=== PATIENT | male | born 1985 | race Caucasian/White ===

== ENCOUNTER 2016-11-24 22:35 | Emergency (ER) | payer SELFPAY ==
[~2016-11-24] VITALS: Ht 167.6 cm; Wt 104.0 kg
[~2016-11-24 22:35] MED LIST: CYCL5TAB PO; IBUP800T23 PO; PROZ20CA11 PO
[2016-11-24 22:38] VITALS: BP 141/93; PULSE 80; RESP 16; TEMP 98; O2SAT 98
[2016-11-24 22:55] VITALS: BP 141/93; PULSE 80; RESP 18; TEMP 98; O2SAT 98
[2016-11-24] MEDS ORDERED: AMOX500C PO (23:55)
[2016-11-24] MEDS ORDERED: IBUP800T23 PO (23:55)
--- NOTE | 2016-11-24 23:56 | PD ---
HPI Chief Complaint: Oral / Dental Pain or Problem Time Seen by Provider: 23:02 Travel History International Travel<30 days: No Contact w/Intl Traveler<30days: No Traveled to known affect area: No History of Present Illness HPI The patient is a 31-year-old male that has had dental pain in both posterior most mandibular molars for 2 years. These are teeth #32 and 17. He has had wisdom teeth removed. He states he has a dental appointment on Friday. He denies any fever, diabetes, heart murmur. He states the pain caused bilateral ear pain. The pain is worse in the last 3 days. [facility] Past Medical History Diminished Hearing: No GERD: Yes Immunizations Current: Yes Tetanus Vaccination: Unknown Influenza Vaccination: Yes Social History Alcohol Use: No Tobacco Use: No Substance Use: No Allergies-Medications (Allergen,Severity, Reaction): Coded Allergies: Azithromycin (Verified Allergy, Severe, swelling, 11/24/16) Tramadol (Verified Allergy, Severe, swelling, 11/24/16) Vicodin (Verified Allergy, Severe, swelling, 11/24/16) Reported Meds & Prescriptions Reported Meds & Active Scripts Active No Active Prescriptions or Reported Medications Review of Systems Except as stated in HPI: all other systems reviewed are Neg Physical Exam Narrative GENERAL: Well-nourished, well-developed patient in moderate apparent distress with his dental pain. His vital signs show blood pressure 141/93 but are otherwise normal. SKIN: Warm and dry. HEAD: Normocephalic. EYES: No scleral icterus. No injection or drainage. NECK: Supple, trachea midline. No JVD or lymphadenopathy. CARDIOVASCULAR: Regular rate and rhythm without murmurs, gallops, or rubs. RESPIRATORY: Breath sounds equal bilaterally. No accessory muscle use. GASTROINTESTINAL: Abdomen soft, non-tender, nondistended. MUSCULOSKELETAL: No cyanosis, or edema. BACK: Nontender without obvious deformity. No CVA tenderness. DENTAL: No loose or chipped teeth. No malocclusion. Tooth #32 is broken down and exquisitely tender. No drainable masses are seen in this area. Tooth #17 is exquisitely tender, no drainable abscesses are noted in the area. ENT: The tympanic membranes show some slight redness on the left tympanic membrane, the right tympanic membrane is normal. He has bilateral slight TMJ tenderness which is likely from the dental infection. Data Data Last Documented VS Vital Signs Date Time Temp Pulse Resp B/P Pulse Ox O2 Delivery O2 Flow Rate FiO2 11/24/16 22:57 80 18 11/24/16 22:55 98.0 141/93 98 MDM Medical Decision Making Medical Screen Exam Complete: Yes Emergency Medical Condition: Yes Medical Record Reviewed: Yes Differential Diagnosis Dental infection, otitis media, otitis externa, TMJ pain, drainable dental abscesses Narrative Course The patient has dental infections in teeth #32 and 17. There are no drainable abscess is noted. He does have a questionable otitis media on the left. Plan: The patient is given amoxicillin 500 mg 3 times a day with 2 refills. He is to follow-up with his dentist as scheduled. Diagnosis Primary Impression: Dental infection Additional Impression: Left otitis media Additional Instructions: Follow-up with your dentist as scheduled. Take the Motrin regularly, 1 tablet 3 times daily. There are 2 refills available to you with amoxicillin. Med/Other Pt SpecificInfo: Prescription(s) given Scripts Ibuprofen 800 Mg [id number] Mg PO TID #45 TAB Ref 0 Prov:Bruno Ackerman MD 11/24/16 Amoxicillin 500 Mg [id number] Mg PO TID 10 Days Ref 0 Prov:Bruno Ackerman MD 11/24/16 Disposition: 01 DISCHARGE HOME Condition: Stable Bruno Ackerman MD Nov 24, 2016 23:56
[2016-11-25] VITALS: BP 143/93; PULSE 69; RESP 18; O2SAT 99
[2016-11-25] MEDS ORDERED: AMOXICILLIN 875 MG TAB PO ONE
[2016-11-25] MEDS ORDERED: IBUPROFEN 800 MG TAB PO ONE ×2 (00:15)
== END 2016-11-25 00:33 | disposition home or self-care (01) ==
LOC: PHED 22:35
DX: K04.7 Periapical abscess without sinus (principal); H66.92 Otitis media, unspecified, left ear
CPT/HCPCS: 99282

== ENCOUNTER 2017-11-02 19:04 | Emergency (ER) | payer SELFPAY ==
[~2017-11-02] VITALS: Ht 167.6 cm; Wt 110.0 kg
[~2017-11-02 19:04] MED LIST changes: +AMOX500C PO; -CYCL5TAB PO; +IBUP1TAB7 PO; -IBUP800T23 PO; -PROZ20CA11 PO
[2017-11-02 19:05] VITALS: BP 165/108; PULSE 90; RESP 16; TEMP 98; O2SAT 98
[2017-11-02 20:16] VITALS: BP 158/97; PULSE 95; RESP 16; O2SAT 99
--- NOTE | 2017-11-02 20:32 | PD ---
HPI Chief Complaint: Hypertension Time Seen by Provider: 20:30 Travel History International Travel<30 days: No Contact w/Intl Traveler<30days: No Traveled to known affect area: No History of Present Illness HPI 32-year-old male patient presents to the ER today for anxiety, palpitations, sweatiness today. He states that he has been stressed out at work. He stopped by and noted that the blood pressure was fairly elevated. He has not had any significant hypertension in the past and is not any medications. He denies any chest pains, shortness of breath, or any other symptoms. Modifying Factors: None Associated Signs & Symptoms: Palpitations, anxiety, sweatiness, elevated blood pressure Risk Factors: Feeling stressed out at work PFSH Past Medical History Cardiovascular Problems: Yes (PRINZMETALS ANGINA) Diminished Hearing: No GERD: Yes Immunizations Current: Yes Past Surgical History Cholecystectomy: Yes Social History Alcohol Use: Yes (RARE) Tobacco Use: No Substance Use: No Allergies-Medications (Allergen,Severity, Reaction): Coded Allergies: acetaminophen (Unverified Allergy, Severe, swelling, 05/20/17) azithromycin (Unverified Allergy, Severe, swelling, 05/20/17) hydrocodone (Unverified Allergy, Severe, swelling, 05/20/17) tramadol (Unverified Allergy, Severe, swelling, 11/02/17) Reported Meds & Prescriptions Reported Meds & Active Scripts Active No Active Prescriptions or Reported Medications Review of Systems Except as stated in HPI: all other systems reviewed are Neg Physical Exam Narrative GENERAL: Well-developed young white male patient currently in mild distress. Awake and oriented 3. Appears mildly anxious. SKIN: Focused skin assessment warm/dry. HEAD: Atraumatic. Normocephalic. EYES: Pupils equal and round. No scleral icterus. No injection or drainage. ENT: No nasal bleeding or discharge. Mucous membranes pink and moist. NECK: Trachea midline. No JVD. Supple. CARDIOVASCULAR: Regular rate and rhythm. No murmur appreciated. RESPIRATORY: No accessory muscle use. Clear to auscultation. Breath sounds equal bilaterally. GASTROINTESTINAL: Abdomen soft, non-tender, nondistended. Hepatic and splenic margins not palpable. MUSCULOSKELETAL: No obvious deformities. No clubbing. No cyanosis. No edema. NEUROLOGICAL: Awake and alert. No obvious cranial nerve deficits. Motor grossly within normal limits. Normal speech. PSYCHIATRIC: Appropriate mood and affect; insight and judgment normal. Data Data Last Documented VS Vital Signs Date Time Temp Pulse Resp B/P (MAP) Pulse Ox O2 Delivery O2 Flow Rate FiO2 11/02/17 20:16 95 16 158/97 (117) 99 Room Air 11/02/17 19:05 98.0 Orders Orders Electrocardiogram (11/02/17 ) Basic Metabolic Panel (Bmp) (11/02/17 20:30) Ckmb (Isoenzyme) Profile (11/02/17 20:30) Troponin I (11/02/17 20:30) Drug Screen, Random Urine (11/02/17 20:32) CKMB (11/02/17 20:45) CKMB% (11/02/17 20:45) Labs Laboratory Tests Test 11/02/17 20:45 Blood Urea Nitrogen 14 MG/DL Creatinine 1.22 MG/DL Random Glucose 111 MG/DL Calcium Level 9.0 MG/DL Sodium Level 138 MEQ/L Potassium Level 4.0 MEQ/L Chloride Level 105 MEQ/L Carbon Dioxide Level 26.8 MEQ/L Anion Gap 6 MEQ/L Estimat Glomerular Filtration Rate 68 ML/MIN Total Creatine Kinase 119 U/L Creatine Kinase MB 1.0 NG/ML Troponin I LESS THAN 0.02 NG/ML MDM Medical Decision Making Medical Screen Exam Complete: Yes Emergency Medical Condition: Yes Medical Record Reviewed: Yes Interpretation(s) EKG shows normal sinus rhythm at a rate of 80 bpm with a incomplete right bundle branch block pattern. No signs of acute ST-T changes. Laboratory Tests Test 11/02/17 20:45 Random Glucose 111 MG/DL (74-106) Estimat Glomerular Filtration Rate 68 ML/MIN (>89) Troponin I LESS THAN 0.02 NG/ML Differential Diagnosis Palpitations, anxiety: Anxiety attack versus hypertensive urgency versus metabolic issues versus dysrhythmias Narrative Course Patient appears anxious. EKG did not show significant dysrhythmias. Lab work was fairly unremarkable. At this point, my plan would be to release the patient with follow-up to primary care physician. Return for any new issues as needed. The plan has been discussed with him and he states understanding. Diagnosis Primary Impression: Anxiety Additional Impression: High blood pressure Scripts No Active Prescriptions or Reported Meds Disposition: 01 DISCHARGE HOME Condition: Stable Naima Reese MD Nov 02, 2017 20:32
[2017-11-02 21:28] LABS: TROPONIN I LESS THAN 0.02 NG/ML (0.02-0.05)
[2017-11-02 21:50] LABS: BICARBONATE 26.8 MEQ/L (21.0-32.0); BLOOD UREA NITROGEN 14 MG/DL (7-18); CHLORIDE 105 MEQ/L (98-107); CREATININE 1.22 MG/DL (0.60-1.30); GLOMERULAR FILTRATION RATE 68 ML/MIN (>89); GLUCOSE,RANDOM 111 MG/DL (74-106); SODIUM (NA) 138 MEQ/L (136-145)
--- NOTE | 2017-11-03 19:34 | EKG ---
Date Performed: 11/02/2017 Time Performed: 20:18:27 PTAGE: 32 years EKG: Sinus rhythm INCOMPLETE RIGHT BUNDLE BRANCH BLOCK Since previous tracing, no significant change noted BORDERLINE ECG PREVIOUS TRACING : 07/11/2008 11.10 DOCTOR: Juno Ocampo Interpretating Date/Time 11/03/2017 19:33:52
== END 2017-11-03 | disposition home or self-care (01) ==
LOC: NEPE 19:04
DX: F41.9 Anxiety disorder, unspecified (principal); R03.0 Elevated blood-pressure reading, without diagnosis of hypertension; I45.10 Unspecified right bundle-branch block
CPT/HCPCS: 80048; 82550; 82552; 84484; 93005; 99284

== ENCOUNTER 2017-11-05 23:04 | Emergency (ER) | payer SELFPAY ==
[~2017-11-05] VITALS: Ht 167.6 cm; Wt 115.0 kg
[2017-11-05 23:08] VITALS: BP 186/109; PULSE 109; RESP 16; TEMP 98.7; O2SAT 99
[2017-11-05 23:21] VITALS: BP 145/73; PULSE 103; RESP 20; O2SAT 97
--- NOTE | 2017-11-05 23:36 | PD ---
HPI . High blood pressure Chief Complaint: Hypertension Time Seen by Provider: 23:18 Travel History International Travel<30 days: No Contact w/Intl Traveler<30days: No Traveled to known affect area: No History of Present Illness HPI This patient is a 32-year-old male who presents with feelings of jitteriness and excessive sweating. He reports the onset of all of this began on Friday where he began to feel under the weather including Friday. Friday he felt his blood pressure seemed to be very high and came to [facility]. He was then told to meet with his primary, but missed that appointment today. Today he reports feeling very anxious. Denies any aggravating or relieving factors. Denies any excessive caffeine use during the day but only had a Dr. Avalos. Patient denies any chest pain, shortness of breath, nausea and vomiting, and ankle swelling. He does mention having a green mucus producing cough on Friday. No obvious modifying factors. He states that his systolic blood pressure was 157 at home prior to presentation. [facility] Past Medical History Cardiovascular Problems: Yes (PRINZMETALS ANGINA) Diminished Hearing: No GERD: Yes Hiatal Hernia: Yes Immunizations Current: Yes Tetanus Vaccination: < 5 Years Influenza Vaccination: No Past Surgical History Cholecystectomy: Yes Social History Alcohol Use: Yes (RARE) Tobacco Use: No Substance Use: No Allergies-Medications (Allergen,Severity, Reaction): Coded Allergies: tramadol (Unverified Allergy, Severe, swelling, 11/05/17) Reported Meds & Prescriptions Reported Meds & Active Scripts Active No Active Prescriptions or Reported Medications Review of Systems Except as stated in HPI: all other systems reviewed are Neg Eyes: No: Blurred Vision HENT: No: Headaches Cardiovascular: No: Chest Pain or Discomfort Respiratory: No: Shortness of Breath Musculoskeletal: No: Edema Physical Exam Narrative GENERAL: Anxious appear male in no acute distress. SKIN: warm/dry. HEAD: Normocephalic. EYES: Pupils equal and round. No scleral icterus. No injection or drainage. ENT: No nasal bleeding or discharge. Mucous membranes pink and moist. NECK: Trachea midline. Full range of motion without pain.. CARDIOVASCULAR: Regular rate and rhythm. No clicks, rubs, gallops. No bruits detected. No JVD noted. RESPIRATORY: No accessory muscle use. Clear to auscultation. Breath sounds equal bilaterally. GASTROINTESTINAL: Abdomen soft. Nontender. Bowel sounds present. Nondistended. MUSCULOSKELETAL: No obvious deformities. No peripheral edema. NEUROLOGICAL: Awake and alert. No obvious cranial nerve deficits. Motor grossly within normal limits. Normal speech. PSYCHIATRIC: Appropriate mood and affect; insight and judgment normal. Data Data Last Documented VS Vital Signs Date Time Temp Pulse Resp B/P (MAP) Pulse Ox O2 Delivery O2 Flow Rate FiO2 11/05/17 23:21 103 20 145/73 (97) 97 Room Air 11/05/17 23:08 98.7 Orders Orders Ed Discharge Order (11/05/17 23:37) [facility] Medical Decision Making Medical Screen Exam Complete: Yes Emergency Medical Condition: Yes Differential Diagnosis My differential diagnosis of high blood pressure includes but is not limited to "white coat syndrome," anxiety, essential hypertension, hypertensive emergency. Narrative Course This patient presents with a chief complaint high blood pressure. He appears very anxious. His blood pressure in the room is 145/75. He does not have any signs or symptoms for hypertensive emergency. He will be discharged home with instructions to see his primary care provider. Diagnosis Primary Impression: High blood pressure Qualified Codes: I10 - Essential (primary) hypertension Scripts No Active Prescriptions or Reported Meds Disposition: DISCHARGE HOME Condition: Stable Deya Leal MD Nov 05, 2017 23:36
== END 2017-11-05 23:55 | disposition home or self-care (01) ==
LOC: NEPD 23:04
DX: I10 Essential (primary) hypertension (principal)
CPT/HCPCS: 99282